=== PATIENT | female | born 1990 | race Caucasian/White ===

== ENCOUNTER → 2020-05-28 | Outpatient (CLI) | payer OTHER | LOC: EXRD 04-24 11:15 | DX: N39.0 Urinary tract infection, site not specified (principal); Z53.9 Procedure and treatment not carried out, unspecified reason ==

== ENCOUNTER 2021-01-19 12:50 | Emergency (ER) | payer OTHER | END 2021-01-19 15:15 | disposition left against medical advice (07) | LOC: ER1 12:50 | DX: R51.9 Headache, unspecified (principal); F17.210 Nicotine dependence, cigarettes, uncomplicated; Z90.710 Acquired absence of both cervix and uterus; Z79.1 Long term (current) use of non-steroidal anti-inflammatories (NSAID) | CPT/HCPCS: 70450; 99284 ==

== ENCOUNTER → 2021-03-26 | Outpatient (CLI) | payer OTHER | LOC: KOH-I 03-22 13:30 | DX: N18.31 Chronic kidney disease, stage 3a (principal) | CPT/HCPCS: 76775 ==

== ENCOUNTER 2021-05-03 16:37 | Inpatient (IN) | payer OTHER ==
[~2021-05-03] VITALS: Ht 157.5 cm; Wt 44.5 kg
[2021-05-03 18:20] LABS: HEMOGLOBIN 10.9 gm/dl (12.3-15.3); RED BLOOD COUNT 3.34 M/UL (4.00-5.10); WHITE BLOOD COUNT 13.6 K/UL (4.5-11.0)
[2021-05-04] MEDS ORDERED: CEPHALEXIN500 MG PO (10:27)
[2021-05-04] MEDS ORDERED: KLOR-CON M2020 MEQ PO (10:28)
[2021-05-04] MEDS ORDERED: ESTRADIOL1 EAC1 TOP (11:46)
[2021-05-04] MEDS ORDERED: PROGESTERONE200 MG PO (11:47)
[2021-05-04] MEDS ORDERED: FLONASE ALLER15.8 ML (11:47)
[2021-05-04] MEDS ORDERED: HEARTBURN PREVE20 MG PO (11:47)
[2021-05-04] MEDS ORDERED: GABAPENTIN800 MG PO (11:48)
[2021-05-04] MEDS ORDERED: IBU800 MG PO (11:48)
[2021-05-04] MEDS ORDERED: PRAZOSIN HCL1 MG PO (11:49)
[2021-05-04] MEDS ORDERED: BUPRENORPHIN-N1 EACH PO (11:49)
[2021-05-04] MEDS ORDERED: VITAMIN B-121000 MCG PO (11:49)
[2021-05-05 02:27] LABS: RED BLOOD COUNT 2.73 M/UL (4.00-5.10); WHITE BLOOD COUNT 12.7 K/UL (4.5-11.0)
[2021-05-05 02:28] LABS: HEMOGLOBIN 8.6 gm/dl (12.3-15.3)
[2021-05-08 12:11] LABS: CREATININE, URINE 66.5 mg/dL (Not Estab.)
[2021-05-08 14:55] LABS: HEMOGLOBIN 7.5 gm/dl (12.3-15.3); RED BLOOD COUNT 2.36 M/UL (4.00-5.10); WHITE BLOOD COUNT 7.3 K/UL (4.5-11.0)
[2021-05-09 07:23] LABS: HEMOGLOBIN 7.5 gm/dl (12.3-15.3); RED BLOOD COUNT 2.37 M/UL (4.00-5.10); WHITE BLOOD COUNT 6.6 K/UL (4.5-11.0)
[2021-05-09 08:13] LABS: HBSAG SCREEN Negative (Negative)
[2021-05-09 10:13] LABS: COMPLEMENT C3, SERUM 86 mg/dL (82-167); COMPLEMENT C4, SERUM 23 mg/dL (12-38)
[2021-05-09] MEDS ORDERED: BICITRA PO (11:09)
[2021-05-09] MEDS ORDERED: VITAMIN D21250 MCG PO (11:19)
[2021-05-09] MEDS ORDERED: KLOR-CON M2020 MEQ PO (11:23)
[2021-05-09 12:13] LABS: ANTI-DSDNA ANTIBODIES <1 IU/mL (0-9)
[2021-05-10 16:13] LABS: ANTIMYELOPEROXIDASE (MPO) ABS <9.0 U/mL (0.0-9.0); ANTIPROTEINASE 3 (PR-3) ABS <3.5 U/mL (0.0-3.5); ATYPICAL PANCA <1:20 titer (Neg:<1:20); CYTOPLASMIC (C-ANCA) <1:20 titer (Neg:<1:20); PERINUCLEAR (P-ANCA) <1:20 titer (Neg:<1:20)
== END 2021-05-09 18:15 | disposition home or self-care (01) | DRG 682 ==
LOC: ER1 16:37 → CDU 21:50 → MED SURG 4 21:50 → CDU 21:50 → MED SURG 4 05-04 20:18
PROVIDERS: Internal Medicine; Internal Medicine Nephrology; Physician Assistant Medical; ADMIT Internal Medicine
DX: N17.9 Acute kidney failure, unspecified (principal); G92.8 Other toxic encephalopathy; E87.2 Acidosis; N30.00 Acute cystitis without hematuria; E44.0 Moderate protein-calorie malnutrition; F11.20 Opioid dependence, uncomplicated; E87.0 Hyperosmolality and hypernatremia; F15.20 Other stimulant dependence, uncomplicated; Z68.1 Body mass index [BMI] 19.9 or less, adult; Z20.822 Contact with and (suspected) exposure to COVID-19; E87.6 Hypokalemia; M51.36 Other intervertebral disc degeneration, lumbar region; D63.1 Anemia in chronic kidney disease; N26.1 Atrophy of kidney (terminal); M54.9 Dorsalgia, unspecified; G89.29 Other chronic pain; K21.9 Gastro-esophageal reflux disease without esophagitis; R80.9 Proteinuria, unspecified; M62.81 Muscle weakness (generalized); K52.9 Noninfective gastroenteritis and colitis, unspecified; G47.00 Insomnia, unspecified; N18.32 Chronic kidney disease, stage 3b; F17.200 Nicotine dependence, unspecified, uncomplicated; Z90.710 Acquired absence of both cervix and uterus; Z90.49 Acquired absence of other specified parts of digestive tract; Z83.3 Family history of diabetes mellitus; Z88.8 Allergy status to other drugs, medicaments and biological substances; Z79.899 Other long term (current) drug therapy
CPT/HCPCS: 36415; 80048; 80053; 80069; 81001; 82043; 82533; 82550; 82553; 82570; 82728; 82803; 82962; 83520; 83540; 83550; 83605; 83735; 84100; 84132; 84133; 84156; 84439; 84443; 84484; 84702; 85025; 85027; 85652; 86038; 86140; 86160; 86225; 86256; 87040; 87086; 87340; 93005; 96365; 96368; 99285; G0378; J0610; J0696; J0834; J1644; J3475; J3480; J7030; J7070; Q9967; U0002